=== PATIENT | male | born 1985 | race Caucasian/White ===

== ENCOUNTER 2019-12-09 00:09 | Emergency (ER) | payer OTHER ==
[~2019-12-09] VITALS: Ht 170.2 cm; Wt 61.2 kg
[2019-12-09 00:10] VITALS: BP 119/57
--- NOTE | 2019-12-09 00:11 | NUR ---
PT [facility]. TAKEN TO BED 7
--- NOTE | 2019-12-09 00:12 | NUR ---
Dr. Gross examining patient.
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
[2019-12-09] MEDS ORDERED: IBUPROFEN 800 MG TAB PO ONE (00:15)
--- NOTE | 2019-12-09 00:39 | NUR ---
REPORT TO PRIMARY RN QUEENIE.
--- NOTE | 2019-12-09 01:19 | NUR ---
[facility] AT BEDSIDE
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
[2019-12-09 01:38] VITALS: BP 119/57
--- NOTE | 2019-12-09 01:38 | NUR ---
Patient discharged with v/s stable. Written and verbal after care instructions given and explained. Patient alert, oriented and verbalized understanding of instructions. Ambulatory with steady gait. All questions addressed prior to discharge. ID band removed. Patient advised to follow up with PMD. Rx of AUGMENTIN, MOTRIN given. Patient educated on indication of medication including possible reaction and side effects. Opportunity to ask questions provided and answered.
== END 2019-12-09 01:38 | disposition home or self-care (01) ==
LOC: MED 00:09
DX: M79.662 Pain in left lower leg (principal); W54.0XXA Bitten by dog, initial encounter; Y93.89 Activity, other specified; Y92.89 Other specified places as the place of occurrence of the external cause; Y99.8 Other external cause status
CPT/HCPCS: 73590; 90471; 90715; 99283; Q0092